=== PATIENT | male | born 2005 | race Caucasian/White ===

== ENCOUNTER 2024-10-01 13:22 | Emergency (ER) | payer BC, SELFPAY ==
[2024-10-01 13:49] VITALS: BP 125/64; PULSE 81; RESP 18; TEMP 36.7; O2SAT 98
--- NOTE | 2024-10-01 13:52 | ED.HA ---
HPI - Headache General Chief Complaint: Headache Stated Complaint: migraine Time Seen by Provider: 10/01/24 13:52 Source: patient Mode of arrival: ambulatory Limitations: no limitations History of Present Illness HPI Narrative: 19-year-old male presented for complaint of a migraine, onset today. Took ibuprofen which brought the pain from an 8/10 down to 6/10. Endorses photophobia and nausea. Denies other associated symptoms. States he does not get migraines often. He does need a work note for today. Related Data Home Medications ?Medication ?Instructions ?Recorded ?Confirmed ?Last Taken ?Type fluoxetine 10 mg capsule mg 10/01/24 Unknown History fluoxetine 20 mg capsule mg 10/01/24 Unknown History fluoxetine 40 mg capsule mg 10/01/24 Unknown History hydroxyzine HCl 10 mg tablet mg 10/01/24 Unknown History Allergies Allergy/AdvReac Type Severity Reaction Status Date / Time No Known Allergies Allergy Verified 10/01/24 13:43 Review of Systems Review of Systems: CONSTITUTIONAL: Denies body aches, fever, chills, or sweats. EYES: Denies visual changes, redness, or discharge. ENT: Denies rhinorrhea, congestion, sore throat, or otalgia. CARDIOVASCULAR: Denies chest pain, palpitations, or edema. RESPIRATORY: Denies cough or dyspnea. GASTROINTESTINAL: Denies abdominal pain, nausea, vomiting, or diarrhea. MUSCULOSKELETAL: Denies back pain, joint pain, or myalgia. NEUROLOGIC: reports headache, denies numbness, tingling, or weakness. All systems reviewed & are unremarkable except as noted in HPI and below PMFSH Comments At time of signature, I have reviewed and agree with nursing past medical, surgical, social and family history unless otherwise noted. Please see nursing chart for further information. There is no relevant family history pertinent to the presenting complaint Exam Narrative: GENERAL: Well-appearing, in no acute distress. HEAD: Normocephalic, atraumatic. EYES: EOMI. No redness or drainage. Conjunctivae normal. Wearing sunglasses in room. ENT: Mucous membranes pink and moist. No rhinorrhea. NECK: Normal AROM. CHEST: No respiratory distress. Clear to auscultation. HEART: Regular rate and rhythm. No murmur appreciated. Normal peripheral pulses. ABDOMEN: Soft, nontender, nondistended, normal active bowel sounds. SKIN: Warm, dry, no rash. Capillary refill normal. Normal skin turgor. NEURO: No focal deficits. Alert and oriented x3. Gait steady. PSYCH: Normal affect. Course Course Emergency Course: Patient is aware of diagnosis, understands and agrees to treatment plan. Anticipatory guidance given. Patient agrees to follow-up as directed and is aware of reasons to seek care at the emergency department. Portions of this record may have been created with voice recognition software Level of Care: Express Care Visit Vital Signs Vital signs: Vital Signs Temperature 98.1 F 10/01/24 13:49 Pulse Rate 81 10/01/24 13:49 Respiratory Rate 18 10/01/24 13:49 Blood Pressure 125/64 10/01/24 13:49 Pulse Oximetry 98 10/01/24 13:49 Oxygen Delivery Room Air 10/01/24 13:49 Temperature 98.1 F 10/01/24 13:49 Pulse Rate 81 10/01/24 13:49 Respiratory Rate 18 10/01/24 13:49 Blood Pressure 125/64 10/01/24 13:49 Pulse Oximetry 98 10/01/24 13:49 Oxygen Delivery Room Air 10/01/24 13:49 MDM - Headache MDM Narrative Medical decision making narrative: Discussed physical exam findings. Advised supportive measures and signs/symptoms to go to the ER. Pt is appropriate for outpt treatment and f/u. Differential Diagnosis Differential diagnosis: Likely migraine, tension headache, headache and sinusitis Discharge Plan Discharge Clinical Impression: Migraine Patient Disposition: Home, Self-Care Condition: Stable Instructions: Antibiotic Form, Migraine Headache (ED) Additional Instructions: Rest in a cool dark room Avoid screens (computers, tablets, phones, television) Drink plenty fluids. Tylenol and ibuprofen every 8 hours as needed Follow up with your primary care provider in 1 week Go to the ER for worsening symptoms or concerns Patient Language: [place]ian Prescriptions: No Action fluoxetine 40 mg capsule fluoxetine 10 mg capsule hydroxyzine HCl 10 mg tablet fluoxetine 20 mg capsule Follow-up/Referrals: PHYSICIAN,MEDICAL FRONT DESK SPECIALIST [Primary Care Provider] - Stand Alone Forms: Work/School Release IP Time of Disposition: 13:57
== END 2024-10-01 13:58 | disposition home or self-care (01) ==
PROVIDERS: Emergency Provider Nurse Practitioner Family
DX: G43.909 Migraine, unspecified, not intractable, without status migrainosus (principal); Z79.899 Other long term (current) drug therapy
CPT/HCPCS: 99213; G0463